=== PATIENT | female | born 1945 | race Caucasian/White ===

== ENCOUNTER → 2022-01-19 | Outpatient (CLI) | payer MEDICARE, BC ==
--- NOTE | 2022-01-19 16:05 | RAD ---
AP and lateral views of left humerus no comparison. INDICATION: Left arm pain. FINDINGS: No fracture subluxation dislocation. No significant degenerative changes. Electronically signed by: Fuad Weber MD (01/19/2022 4:03 PM) [facility]
== END ==
LOC: RAD 12:32
PROVIDERS: ATTEND Internal Medicine
DX: M89.8X2 Other specified disorders of bone, upper arm (principal)
CPT/HCPCS: 73060